=== PATIENT | male | born 1990 | race Caucasian/White ===

== ENCOUNTER 2021-06-08 17:37 | Emergency (ER) | payer BC, OTHER ==
[~2021-06-08] VITALS: Ht 182.9 cm; Wt 97.5 kg
[2021-06-08] MEDS ORDERED: cefTRIAXone 1GM/50ML D5W 50 ML IV ONE (18:00)
[2021-06-08] MEDS ORDERED: HYDROmorphone HCL 2 MG/ML VL IV ONE ×2 (18:00→19:00)
[2021-06-08] MEDS ORDERED: TETANUS-DIPTH-ACEL PERTUSSIS 0.5ML SYR Tdap IM ONE (18:00)
[2021-06-08] MEDS ORDERED: ONDANSETRON HCL 4 MG/2 ML VIAL IV ONE ×2 (18:00→19:00)
[2021-06-08] MEDS ORDERED: IOHEXOL 300 MG/ML 100ML BOTTLE IJ ONE (18:14)
[2021-06-08] MEDS ORDERED: SODIUM CHLORIDE 0.9% 1,000 ML IV ONE ×2 (18:15)
[2021-06-08 19:33] VITALS: BP 141/83
[2021-06-08 19:57] LABS: Basophils # (auto) 0 10 ^3/uL (0-0.2); Basophils % (auto) 0.4 % (0.0-2.0); Eosinophils # (auto) 0.1 10 ^3/uL (0-0.8); Eosinophils % (auto) 0.6 % (0.0-7.0); Hematocrit 41.8 % (41.0-53.0); Hemoglobin 14.6 g/dL (13.5-17.5); Lymphocytes # (auto) 1.3 10 ^3/uL (0.4-5.4); Lymphocytes % (auto) 16.4 % (10.0-50.0); Mean Corpuscular Hemoglobin 31.9 pg (28.0-32.0); Mean Corpuscular Volume 91.1 fL (80.0-100.0); Monocytes # (auto) 0.5 10 ^3/uL (0-1.3); Monocytes % (auto) 6.3 % (0.0-12.0); Neutrophils # (auto) 6.2 10 ^3/uL (1.6-8.6); Neutrophils % (auto) 76.3 % (37.0-80.0); Red Blood Cells 4.59 10^6/uL (4.5-5.90); White Blood Cell 8.1 10^3/uL (4.4-10.8)
[2021-06-08 20:39] LABS: INR 0.94 (0.9-1.15); Partial Thromboplastin Time 24.1 sec (23.6-33.0)
[2021-06-08 20:45] LABS: Albumin 3.5 g/dL (3.4-5.0); BUN/Creatinine Ratio 18.5; Calcium 9.1 mg/dL (8.5-10.1); Potassium 4.3 mmol/L (3.5-5.1)
[2021-06-08 20:50] LABS: Bilirubin, Total 0.6 mg/dL (0.2-1.0)
== END 2021-06-08 19:55 | disposition short-term general hospital (02) ==
LOC: ER 17:37
DX: S82.002B Unspecified fracture of left patella, initial encounter for open fracture type I or II (principal); V86.56XA Driver of dirt bike or motor/cross bike injured in nontraffic accident, initial encounter; Y93.89 Activity, other specified; Y92.89 Other specified places as the place of occurrence of the external cause; Y99.8 Other external cause status
CPT/HCPCS: 36415; 73590; 80053; 84484; 85025; 85610; 85730; 90471; 90715; 96365; 96375; 96376; 99285; J0696; J1170; J2405; J7030